=== PATIENT | female | born 1980 | race Caucasian/White ===

== ENCOUNTER 2023-10-18 23:05 | Inpatient (IN) | payer BC, SELFPAY ==
[2023-10-18] VITALS (8 sets, daily range): BP systolic 113–138; BP diastolic 69–84
[2023-10-18 17:48] LABS: COVID-19 Antigen Negative (Negative)
[2023-10-18 18:12] LABS: % Basophils 0.6 % (0-2); % Eosinophils 1.5 % (0-6); % Immature Granulocytes 0.2 % (0-0.5); % Lymphocytes 24.3 % (20.5-51.1); % Monocytes 7.3 % (1.7-9.3); % Neutrophils 66.1 % (42.2-75.2); Absolute Basophils 0.1 10^3/uL (0-0.2); Absolute Eosinophils 0.1 10^3/uL (0-0.7); Absolute Monocytes 0.6 10^3/uL (0.1-0.6); Absolute Neutrophils 5.4 10^3/uL (1.4-6.5); Hematocrit 36.9 % (37.0-47.0); Hemoglobin 12.9 g/dL (12.0-16.0); Mean Corpuscular Hgb 31.9 pg (27.0-31.0); Mean Corpuscular Volume 91.1 fL (81.0-99.0); Mean Platelet Volume 9.7 fL (7.4-10.4); Nucleated Red Blood Cells % 0 %; Platelet Count 266 10^3/uL (130-400); Red Blood Cell Count 4.05 10^6/uL (4.20-5.40); White Blood Cell Count 8.1 10^3/uL (4.8-10.8)
--- NOTE | 2023-10-18 18:12 | ED.GENMED ---
History of Present Illness
General
Chief Complaint: Chest Problem
Source: patient
Exam Limitations: none
Time Seen by Provider: 10/18/23 17:37
Nursing documentation reviewed up to this point in time: agreed with
Travel History
Have you had any contact with someone who has COVID-19?: No
Do you have any symptoms of coronavirus? Fever > 100 degrees, chills, cough, shortness of breath, sore throat, loss of taste or smell, muscle aches, or headache?: Yes
Symptoms:: cough
History of Present Illness
History of Present Illness:
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
no chronic problems
on patch for menopausal sxs
here with b/l lower chest/upper abd pain and chest tightness, pleuritic pain x 4 days
pt says she had a GI issue the night beofre with cramping and diarrhea. she had a few episodes of nonbloody diarrhea
the following day she noticed while on the elipitcal she was having some inspiratory CP and chest tightness
'i was aware of my breath'
pt has had continuing of that discomfort the past few days and says she got a worsening pain on her L lower chest that seemed to move across to her R side today as well
she has also had a dry cough
no fever, chills, heompatoysis, no h/o recen ttravel
no legs welling
no h/o dvt/pe
nonsmoker
Past History
Past History
ED Past Medical History: None
ED Past Surgical History: None
Patient has exhibited threatening behavior?: No
Social History
Tobacco: Non-smoker
Personal:
Living: with family
Review of Systems
Review of Systems
Allergies reviewed?: Yes
All Other Systems: Not applicable
Phy Exam
Physical Exam
Physical Exam:
GENERAL: Alert , in no apparent distress
EYE: pupils equal and reactive
NECK: Supple
ENT: o/p clr, mmm.
CARDIAC: Regular rate and rhythm .no edema
LUNGS: Clear breath sounds bilaterally, no acute respiratory distress, no wheezes/rales/rhonchi
ABDOMEN: Soft, without focal tenderness, no r/g, no cvat, normal bowel sounds
NEUROLOGICAL: Alert and oriented, no focal neuro deficits
SKIN: Warm and dry, skin intact.
MUSCULOSKELETAL: No edema, well perfused. neg fredrick's sign
PSYCH: Normal and appropriate interaction.
Course
Orders/Labs/Results
Orders:
Orders
10/18/23 17:07
EKG [Electrocardiogram (*1)] Urgent
Reason for Study: Chest Pain
10/18/23 17:08
EKG- Treatment ONCE
10/18/23 17:20
COVID-19 Antigen Urgent
Source: Nasal Swab
Influenza A+B Rapid Molecular Urgent
HANNAH Source: Nasal Swab
Specimen Description:
10/18/23 17:56
Ketorolac [Toradol] 15 mg IV NOW STA
10/18/23 17:57
Electrocardiogram (*1) Urgent
Reason for Study: Abdominal Pain
EKG- Treatment ONCE
Test Result ONCE
10/18/23 18:02
Complete Blood Count/With Diff Urgent
Comprehensive Metabolic Panel Urgent
D-Dimer Urgent
HCG, Serum Qualitative Screen Urgent
Lipase Urgent
10/18/23 19:13
CT Chest Pe Study Urgent
Comment:
Reason For Exam: b/l pleuritic pain
10/18/23 20:57
Heparin 4,900 units IV NOW STA
Nursing to Place Non Medication Order As Directed
Physician Order: PTT 6 hours after initial start of Heparin infusion
10/18/23 21:00
Heparin [id number] Units/250 ml 25,000 units in 250 ml IV PER PROTOCOL
Weight to be used for heparin protocol in kilograms (kg):: 61
Protocol:: DVT/PE
PTT Goal Range to be used:: PTT 73 to 111 seconds
Order type:: Initial
INITIAL Infusion Dose (UNITS/KG/hr) & then follow protocol:: 18 units/kg/hr
Infusion Dose in UNITS/hr & then follow protocol (UNITS/hr):: 1,100
INFUSION RATE in mL/hr & then follow protocol (mL/hr):: 11
For DVT/PE algorithm, re-bolus for low PTT?: Yes
PTT less than or equal to 64 seconds:: Re-bolus 80 units/kg (max 10,000units). Increase by 200 units/hr
(+ 2mL/hr)
PTT 64.1 to 72.9 seconds:: Re-bolus 40 units/kg (max 5,000 units). Increase by 100 units/hr
(+ 1mL/hr)
PTT 73 to 111 seconds:: Target Range. No change in rate.
PTT 111.1 to 130.9 seconds:: Decrease rate by 100 units/hr (- 1 mL/hr)
PTT 131 to 199.9 seconds:: HOLD for 1 hr. Then decrease by 200 units/hr (- 2mL/hr)
PTT greater than or equal to 200 seconds:: HOLD for 2 hrs & Notify Provider. Then decrease by 200 units/hr
(- 2mL/hr)
Lab follow-up:: Each change, PTT q6h until 2 consecutive are therapeutic. Then
PTT daily.
10/18/23 21:17
PTT Urgent
Comment: Obtain baseline before beginning heparin infusion if not already collected
10/18/23 21:48
Troponin I Urgent
10/18/23 22:00
Flush (0.9% Sodium Chloride) [Flush (Nss)] See Dose Instructions IV PER PROTOCOL
10/18/23 22:06
Heparin 4,900 units IV PRN PRN
10/18/23 22:07
Heparin 2,400 units IV PRN PRN
10/18/23 22:12
Urinalysis Reflex To Culture Urgent
Date Specimen was Collected: 10/18/23
Time Specimen was Collected: 22:11
10/18/23 22:41
Admit/Transfer Patient As Directed
Co-Sign Provider:
Level of Care: Inpatient admission
Assign to:: Telemetry
Physician / Group: Fatuma Adam
Diagnosis: Acute bilateral LL PE
Reason for Telemetry: Chest Pain syndromes
Date to Stop Telemetry: 10/20/23
Time to Stop Telemetry: 11:00
Reason for Hospitalization: Acute bilateral LL PE - IV Heparin
Expected length of stay greater than two midnights?: Yes
ELOS- Estimated Length of Stay in days: 2
I certify the patient meets the requirements for IP care: Yes
10/18/23 22:42
Code Status As Directed
Resuscitation Status: Full Code
10/20/23 11:00
DC Protocol for Telemetry ONCE
Abnormal Lab Results
10/18/23
18:02
RBC 4.05 L 10^6/uL
(4.20-5.40)
Hct 36.9 L %
(37.0-47.0)
MCH 31.9 H pg
(27.0-31.0)
D-Dimer 1.48 H ug/mlFEU
(0.00-0.50)
Sodium 133 L mmol/L
(135-145)
Creatinine 0.5 L mg/dL
(0.6-1.0)
10/18/23 18:02
10/18/23 18:02
Vital Signs
Initial and Last Documented VS:
Initial Vital Signs
Temp Pulse Resp BP Pulse Ox
98.3 F 74 18 135/79 99
10/18/23 17:02 10/18/23 17:02 10/18/23 17:02 10/18/23 17:02 10/18/23 17:02
Last Documented Vital Signs
Temp Pulse Resp BP Pulse Ox
98.3 F 76 16 119/84 97
10/18/23 17:02 10/18/23 22:45 10/18/23 22:45 10/18/23 22:07 10/18/23 22:45
MDM/Problems Addressed
Differential Diagnosis Includes:
PE, msk pain, cholelithiasis, costochonrdritis
MDM/Problems Addressed:
43 y/o F
healthy marathon runner
4 days pleuritic lower chest pain
no cp at rest
recently started patch for horomonal changes
no hypoxia, tachypnea, tachycardia
sent by for eval for PE
lungs clear
well apeparing
pulse ox normal
ekg nonischemci
slight t wave inv v2
d dimer elevated
CT shows B/L lower lobe PE
d/w ed attending, given biateral nature, opted to admit.
d/w home health rn regarding dispo vs. admit, who was not sure she could adequately classify pt as low risk without seeing her so thus pt was admitted
trop pending
heparin drip
*Critical Care Note
Total Time (30-74mins, 75-104mins- exclusive of procedures): Not Applicable
ED Attending Note
-
Portions of this chart may have been created with voice recognition software.� Occasional wrong word or��sound alike� substitutions may have occurred due to the inherent limitations of voice recognition software.
Discharge Plan
Departure
Patient Disposition: Admit
Date of Disposition: 10/18/23
Time of Disposition: 20:57
Admit to: Telemetry
Presentation/result/management discussed w/ accepting MD/DO: Hospitalist
Patient with high blood pressure during this ER visit?: No
Condition: Fair
Covid-19: Not Applicable
Discharge Problem:
Bilateral pulmonary embolism
Interventions
Interventions:
*Risk Screen - Suicide Last Done: 10/18/23 17:06
*General Assessment Last Done: 10/18/23 17:06
*Neglect/Abuse Screening Last Done: 10/18/23 17:06
*ED COVID-19 Vaccine History Last Done: 10/18/23 17:06
ED- Cardiac Assessment Last Done: 10/18/23 17:49
ED- Pulmonary Assessment Last Done: 10/18/23 17:49
[2023-10-18 18:22] LABS: HCG, Serum Qualitative Screen Negative
[2023-10-18 18:25] LABS: D-Dimer 1.48 ug/mlFEU (0.00-0.50)
[2023-10-18] MEDS: TORADOL 15 MG IV (18:26)
[2023-10-18 19:11] LABS: ALT (SGPT) 12 U/L (0-35); AST (SGOT) 20 U/L (14-36); Albumin 3.9 g/dl (3.5-5.0); Alkaline Phosphatase 75 U/L (38-126); Blood Urea Nitrogen 9 mg/dl (7-17); Calcium 8.9 mg/dl (8.4-10.2); Carbon Dioxide 25 mmol/L (22-30); Chloride 103 mmol/L (98-107); Glucose 97 mg/dl (70-99); Lipase 141 U/L (23-300); Potassium 3.8 mmol/L (3.5-5.1); Sodium 133 mmol/L (135-145); Total Bilirubin 0.4 mg/dl (0.2-1.3); Total Protein 6.8 g/dl (6.3-8.2); eGFR > 60.00
[2023-10-18 21:34] LABS: APTT 23.7 Sec (23.4-35.0)
[2023-10-18 22:17] LABS: Troponin I < 0.012 ng/ml
[2023-10-18 22:19] LABS: Urine Albumin Trace (Neg - Trace); Urine Bilirubin Negative (Negative); Urine Character Clear (Clear); Urine Color Yellow; Urine Glucose Negative (Negative); Urine Ketone Negative (Negative); Urine Leukocyte Negative (Negative); Urine Nitrite Negative (Negative); Urine Occult Blood Negative (Negative); Urine Urobilinogen Negative (Neg - 1+)
--- NOTE | 2023-10-18 22:24 | HPS.HSE ---
Family Physician
-
Family Physician: Shayla Loyd MD
Chief Complaint
-
chest pain
History of Present Illness
43 y/o F, no PMH, generally healthy (runs marathons) presents to ER for bilateral lower chest and abdominal pain. She reports chest pain is pleuritic, moderate and has been present x 4 days. Prior to these symptoms, she had vague abd
cramping/diarrhea (nonbloody). During exercise, she noted the inspiratory pain stating 'she was more aware of her breath'. Initially her pain was L sided then she felt it on the R side. She reports dry cough without fever/chills. No bleeding. No
recent travel or procedures. No prior clotting. She reports recently starting Xulane patch for post-menopausal symptoms.
Medical History
Past Medical History
Past Medical History: Reports None
Past Surgical History: Reports None
Social History
Tobacco: Non-smoker
Alcohol: None
Drug: None
Personal:
Employment: Employed
Family History
Family History: Not pertinent
Allergies / Home Medications
Allergies reflects when Allergies were last updated in [employer].
Home Medications with original date entered in [employer]
Allergy/Medication List:
Allergies
Allergy/AdvReac Type Severity Reaction Status Date / Time
HARRY AdvReac Intermediate Hives Uncoded 10/18/23 17:02
Home Medications
Probiotic 1 cap PO DAILY@1300 PRN supplement 10/18/23
Review of Systems
-
A 12 point ROS was completed and negative except as noted: Yes
Physical Exam
Vital Signs
Vital Signs
Temp Pulse Resp BP Pulse Ox
98.3 F 65 22 138/83 96
10/18/23 17:02 10/18/23 21:15 10/18/23 21:15 10/18/23 21:00 10/18/23 21:15
Physical Exam
General: No Apparent Distress
HEENT: NormoCephalic and Anicteric
Respiratory: No Wheezes or Rales
Cardiac: S1/S2 and Regular Rhythm
GI: Soft and Non Tender
Neuro: AO x 3
Psych: Calm
Laboratory Results
-
10/18/23 18:02
10/18/23 18:02
Laboratory Results
APTT 23.7 Sec (23.4-35.0) 10/18/23 21:17
Total Bilirubin 0.4 mg/dl (0.2-1.3) 10/18/23 18:02
AST 20 U/L (14-36) 10/18/23 18:02
ALT 12 U/L (0-35) 10/18/23 18:02
Alkaline Phosphatase 75 U/L (38-126) 10/18/23 18:02
Troponin I < 0.012 ng/ml 10/18/23 21:48
Lipase 141 U/L (23-300) 10/18/23 18:02
Data Reviewed
-
Lab Data: Labs Reviewed by me
Impression/Plan
-
Assessment:
Acute bilateral LL PE
- CT: Bilateral lower lobe pulmonary embolism. no RHS.
- likely provoked in setting of Xulane patch
- pulm consulted by ER; recommended admit
- start IV Heparin; monitor PTTs
- check Venous dopplers
- pain control: Prn Tramadol, prn low dose Toradol
Post-menopausal symptoms
- stop Xulane patch; OP Yard Motor Operator follow up
Code: Full
[2023-10-18] MEDS: HEPARIN 25000 UNITS/250 ML IV (22:37)
[2023-10-18] MEDS: HEPARIN 4900 UNITS IV (22:39)
[2023-10-19] VITALS (8 sets, daily range): BP systolic 106–146; BP diastolic 64–78; BMI 23.5
[2023-10-19] MEDS: ULTRAM 50 MG PO (02:18)
--- NOTE | 2023-10-19 02:31 | PTCARENOTE ---
Received pt from ED via stretcher, ambulated to bed without assist. AAOx3, VSS, complains of pain in lower ribcage radiating to pain. Plan of care reviewed. Oriented to floor, call rivas within reach.
[2023-10-19 05:10] LABS: Hematocrit 35.8 % (37.0-47.0); Hemoglobin 12.4 g/dL (12.0-16.0); Mean Corp Hgb Conc. 34.6 g/dL (33.0-37.0); Mean Corpuscular Hgb 31.3 pg (27.0-31.0); Mean Corpuscular Volume 90.4 fL (81.0-99.0); Mean Platelet Volume 9.8 fL (7.4-10.4); Platelet Count 253 10^3/uL (130-400); Red Blood Cell Count 3.96 10^6/uL (4.20-5.40); Red Cell Dist. Width 11.9 % (11.5-14.5); White Blood Cell Count 8.7 10^3/uL (4.8-10.8)
[2023-10-19 05:19] LABS: APTT 69.8 Sec (23.4-35.0)
[2023-10-19] MEDS: HEPARIN 2400 UNITS IV (06:08)
[2023-10-19 06:27] LABS: Blood Urea Nitrogen 10 mg/dl (7-17); Calcium 8.3 mg/dl (8.4-10.2); Carbon Dioxide 23 mmol/L (22-30); Chloride 107 mmol/L (98-107); Estimated Creatinine Clearance 97 ml/min; Glucose 88 mg/dl (70-99); Potassium 3.9 mmol/L (3.5-5.1); Sodium 135 mmol/L (135-145); eGFR > 60.00
--- NOTE | 2023-10-19 08:31 | CON.PUL ---
Consultation
Consultation Request
Date/Time Consultation Requested: 10/19/2023-8 AM
Date/Time Consultation Performed: 10/19/2023-8:30 AM
Requesting Provider: Hospitalist
Performing Provider: Dr. Gresham
Reason for Consultation: Pleurisy and pulmonary embolism
Medical History
-
Chief Complaint: Pleurisy
History of Present Illness:
43-year-old female without significant medical issues and very active including running marathons presented with bilateral lower chest neuritic pain as well as some abdominal pain noted to have bilateral pulmonary emboli-pulmonary consulted for
unprovoked pulmonary embolism 10/19/2023. She noticed some discomfort starting on Tuesday and not feeling right. She took a nap. She continued to run. The day before she came in she ran 6 miles. She cannot run with the same vigor or speed as she
done before. She felt like she had a difficult time taking a deep breath. She had dyspnea on exertion but no other anterior chest pain and offers no complaints of abdominal pain, nausea, vomiting, anorexia, weight loss or lower extremity edema.
Past Medical History
Past Medical History: None (Specifically no history of hypertension, diabetes, CAD, pulmonary, renal, gastrointestinal or neurologic disease)
Social History
Tobacco: Non-smoker
Alcohol: None
Drug: None
Personal:
Living: With Family
Occupational Exposures: No known asbestos exposure
Environmental Exposures: No known tuberculosis exposure n
Family History
Family History: Other (Father-unprovoked lower extremity DVT on chronic anticoagulation)
Allergies / Home Medications
Allergies
Allergy/AdvReac Type Severity Reaction Status Date / Time
HARRY AdvReac Intermediate Hives Uncoded 10/18/23 17:02
Home Medications
Medication Instructions Recorded Confirmed Last Taken Type
Probiotic 1 cap PO DAILY@1300 PRN supplement 10/18/23 10/18/23 Unknown History
Review of Systems
-
Unable to Obtain full review of systems at this time due to: Other (Per HPI)
Vitals / Labs / Diagnostic Testing
Vital Signs
Temp Pulse Resp BP Pulse Ox
98.5 F 68 16 146/70 98
10/19/23 02:13 10/19/23 02:13 10/19/23 02:13 10/19/23 02:13 10/19/23 02:13
Lab Data
10/19/23 04:57
10/19/23 04:57
Laboratory Results
10/18/23 10/19/23
21:17 04:57
APTT 23.7 69.8 H
Microbiology
10/18/23 17:20 Nasal Swab Influenza Types A & B (NICOLE) - Final
Negative for Influenza A & B, NAAT
Negative results must be combined with clinical observations
and patient history.
Nucleic Acid Amplification test (NAAT)performed on the
[employer] platform.
Diagnostic Testing:
Physical Exam
-
Exam:
Well-nourished and well-developed in no apparent distress
HEENT-atraumatic, normocephalic
Neck-supple, no JVD, no bruit
Heart-regular rate and rhythm-no murmurs, rubs or gallops, no increased P2 or RV heave
Chest-clear to auscultation, no wheezes, crackles
Back-no tenderness
Abdomen-soft, nontender, nondistended, no hepatosplenomegaly
Extremities-no cyanosis, clubbing, edema and good peripheral pulses
Integument-intact, no rashes, lesions or ecchymosis
Neurology-alert and oriented, nonfocal motor and sensory exam
Assessment
-
43-year-old female without significant medical issues and very active including running marathons presented with bilateral lower chest neuritic pain as well as some abdominal pain noted to have bilateral pulmonary emboli-pulmonary consulted for
unprovoked pulmonary embolism 10/19/2023.
Assessment
Bilateral pulmonary emboli-unprovoked
Unprovoked with no significant right ventricular strain
D-dimer positive, troponin not obtained, proBNP
PESI-44, class I, low risk
Pleurisy
Postmenopausal symptoms on Xulane patch
Conditions present prior to admission:
None
Family history of unprovoked DVT-father on chronic anticoagulation
Plan
Pulmonary embolism and pleurisy
Respiratory symptoms consistent with unprovoked
Supplemental oxygen as needed
Aspiration precautions
Incentive spirometry
CT chest personally reviewed-bilateral lower lobe pulmonary emboli no findings to suggest right heart strain
Check echocardiogram-pending
Check lower extremity ultrasound-pending
Recommend eventual hypercoagulable workup-family history as well
Stop Xulane patch
Full PESI and sPESI summarized above
Heparin drip or Lovenox 1 mg/kg every 12 hours
Thrombolytics not indicated
Convert to oral anticoagulant for minimum of 3-6 months with subsequent pulmonary/hematologic evaluation
Bedrest �24 hours
DVT prophylaxis-on full anticoagulation
Early nutrition
Early mobilization
Outpatient pulmonary [id number], follow-up CT chest, etc.
Outpatient appropriate malignancy screening including colonoscopy
Diagnostic data:
CT chest 10/18/2023-bilateral lower lobe lobe pulmonary emboli no findings to suggest right heart strain
Data Reviewed
-
EKG: Report reviewed by me
Radiology: Report reviewed by me
CT Scan: Image personally visualized and interpreted and Report reviewed by me
Medical Tests (Nuc Med, Echo etc): Report reviewed by me
Labs: Labs reviewed by me
Old Records: Reviewed
Total Time Spent with Patient (in minutes): 55
[2023-10-19] MEDS: TYLENOL 1000 MG PO ×3 (08:40→21:13)
--- NOTE | 2023-10-19 10:37 | W.PN.HOSP.TC ---
Today's Communication/Plan
-
.
Assessment / Plan
Assessment / Plan
Physical Exam
General:�Comfortable and Conversant
HEENT:�Anicteric and Moist mucous membranes
Respiratory:�Clear and Non Labored Respirations
Cardiac:�S1/S2 and Regular Rhythm
GI:�Soft and Non Tender
Musculoskeletal:�No Clubbing, No Cyanosis and Edema, Right Lower Extremity
Skin:�Warm, Dry and Other (Moderate erythema LLE extending from ankle to just below the Musculoskeletal: Erythema extends outside previously drawn ferreira)
Neuro:�Awake, Alert, Oriented and Non-focal/grossly intact, followed commands.Psych: calm, no agitation.
Acute bilateral LL PE
- CT: Bilateral lower lobe pulmonary embolism.
- likely provoked in setting of Xulane patch
- c/w heparin gtt for 48 hours before switching to oral AC, will have discussion regarding potential side effects and benefits of oral anticoagulation to decide which type. Likely will need 4-6 months of AC
- s monitor PTT
- check Venous Doppler
-Order echocardiogram. Negative troponin.
-Stopped control medication
Eventual home O2 evaluation-
# Pleuritic chest pain
Will give Tylenol [id number]
- pain control: Prn Tramadol, prn low dose Toradol
#Post-menopausal symptoms
Patient was concerned about perimenopausal symptoms including hot flashes/central weight gain
- stop Xulane patch; OP Education Professional follow up
# Hyponatremia, resolved.
Code: Full
Total time spent to see the patient, examine the patient on the floor, review data and lab results, discuss treatment plan with patient, nursing staff around 55 minutes
Anticipated Discharge: 24 - 48 hours
Subjective/Interval History
-
Date of Service: October 19, 2023
She has pleuritic chest pain mostly upon moving and deep breath
Objective Data
-
Labs:
Laboratory Results
10/19/23 10/19/23
04:57 12:15
WBC 8.7
Hgb 12.4
Hct 35.8 L
Plt Count 253
APTT 69.8 H Pending
Sodium 135
Potassium 3.9
Chloride 107
Carbon Dioxide 23
BUN 10
Creatinine 0.5 L
Glucose 88
Calcium 8.3 L
Vital Signs:
Vital Signs
Temp Pulse Resp BP Pulse Ox
98.6 F 72 18 116/73 99
10/19/23 07:25 10/19/23 07:25 10/19/23 07:25 10/19/23 07:25 10/19/23 07:25
I&O
10/18/23 10/19/23 10/20/23
06:59 06:59 06:59
Intake Total 120 / 120
Balance 120 / 120
[2023-10-19 12:55] LABS: APTT 84.2 Sec (23.4-35.0)
[2023-10-19] MEDS: HEPARIN 25000 UNITS/250 ML IV (17:33)
[2023-10-19 19:50] LABS: APTT 78.4 Sec (23.4-35.0)
[2023-10-20 03:55] VITALS: BP 102/60
[2023-10-20 06:26] LABS: Hemoglobin 12.8 g/dL (12.0-16.0); Mean Corp Hgb Conc. 34.6 g/dL (33.0-37.0); Mean Corpuscular Hgb 31.3 pg (27.0-31.0); Mean Corpuscular Volume 90.5 fL (81.0-99.0); Mean Platelet Volume 10.2 fL (7.4-10.4); Platelet Count 283 10^3/uL (130-400); Red Blood Cell Count 4.09 10^6/uL (4.20-5.40); Red Cell Dist. Width 12.3 % (11.5-14.5); White Blood Cell Count 8.7 10^3/uL (4.8-10.8)
[2023-10-20 06:28] LABS: APTT 72.2 Sec (23.4-35.0)
[2023-10-20 07:00] VITALS: BP 120/68
[2023-10-20 07:04] LABS: Blood Urea Nitrogen 10 mg/dl (7-17); Calcium 8.9 mg/dl (8.4-10.2); Carbon Dioxide 25 mmol/L (22-30); Chloride 104 mmol/L (98-107); Estimated Creatinine Clearance 97 ml/min; Glucose 93 mg/dl (70-99); Potassium 4.4 mmol/L (3.5-5.1); Sodium 137 mmol/L (135-145); eGFR > 60.00
[2023-10-20] MEDS: HEPARIN 2400 UNITS IV (07:25)
[2023-10-20] MEDS: TYLENOL 1000 MG PO (07:28)
--- NOTE | 2023-10-20 09:52 | W.PN.PUL.V3 ---
Today's Communication / Plan
-
Increase activity.
Convert to oral anticoagulant-treated for 3-6 months.
Outpatient pulmonary [id number] with primary team
Assessment
-
43-year-old female without significant medical issues and very active including running marathons presented with bilateral lower chest neuritic pain as well as some abdominal pain noted to have bilateral pulmonary emboli-pulmonary consulted for
unprovoked pulmonary embolism 10/19/2023.
Assessment
Bilateral pulmonary emboli-unprovoked
Unprovoked with no significant right ventricular strain
D-dimer positive, troponin not obtained, proBNP
PESI-44, class I, low risk
Pleurisy
Postmenopausal symptoms on Xulane patch
Conditions present prior to admission:
None
Family history of unprovoked DVT-father on chronic anticoagulation
Plan
Respiratory symptoms consistent with unprovoked pulmonary embolism with pleurisy-caveat patient on Xulane patch
Supplemental oxygen as needed
Aspiration precautions
Incentive spirometry
CT chest personally reviewed-bilateral lower lobe pulmonary emboli no findings to suggest right heart strain
Echocardiogram with preserved function and no RV strain.
Lower extremity ultrasound without DVT
Recommend eventual hypercoagulable workup-family history as well
Stop Xulane patch
Full PESI and sPESI summarized above
Convert to oral anticoagulant for minimum of 3-6 months with subsequent pulmonary/hematologic evaluation
Begin to ambulate
DVT prophylaxis-on full anticoagulation.
Nutrition
Outpatient pulmonary [id number], follow-up CT chest, etc.
Outpatient appropriate malignancy screening including colonoscopy
Diagnostic data:
CT chest 10/18/2023-bilateral lower lobe lobe pulmonary emboli no findings to suggest right heart strain
Subjective Data
-
Date of Service:
Date of Service: October 20, 2023
Chief Complaint: Pulmonary Follow Up and Dyspnea Follow Up
Subjective:
Pleurisy ALL gone, no chest pain, shortness of breath at rest, abdominal pain
Review of Systems
General: Other ( per HPI)
Objective Data
Data Reviewed
Vital Signs / I&O:
Vital Signs
Temp Pulse Resp BP Pulse Ox
98.5 F 69 18 120/68 98
10/20/23 07:00 10/20/23 07:00 10/20/23 07:00 10/20/23 07:00 10/20/23 07:00
Intake and Output
10/19/23 10/20/23 10/21/23
06:59 06:59 06:59
Intake Total 120 / 120 1080 / 1080
Balance 120 / 120 1080 / 1080
SaO2: 98
Physical Exam
General: Respiratory Distress (n) and Comfortable
HEENT: Normocephalic, Anicteric and Moist Mucous Membranes
Cardiovascular: Regular Rhythm
Respiratory: Wheeze (n), Crackles (n), Rhonchi (n), Non-Labored Respirations, Accessory Resp Muscle Use (n) and Stridor (n)
GI: Soft, Non Distended and Non Tender
Neurology: Awake, Alert and No Motor Deficits
Skin: Warm, Good Color, Cyanosis (n), Jaundice (n) and Rash (n)
Labs/Micro/Reports
Lab Data
10/20/23 05:52
10/20/23 05:52
Laboratory Results
10/19/23 10/19/23 10/20/23
12:34 19:27 05:52
APTT 84.2 H 78.4 H 72.2 H
Microbiology
10/18/23 17:20 Nasal Swab Influenza Types A & B (NICOLE) - Final
Negative for Influenza A & B, NAAT
Negative results must be combined with clinical observations
and patient history.
Nucleic Acid Amplification test (NAAT)performed on the
[employer] platform.
--- NOTE | 2023-10-20 10:45 | W.DCSUMMARY ---
Discharge Summary
Discharge Data
Date of Admission: 10/18/23
Date of Discharge: 10/20/23
-
Pending Results: No
Hospital Course
43- years old female without significant medical issues and very active including training to run a marathon presented with bilateral lower chest neuritic pain as well as some abdominal pain. She did not have cough, fever. Negative troponin. Chest
scan with contrast showed bilateral pulmonary emboli. She did not have hypoxia. She was evaluated by pulmonary doctor. She had dyspnea on exertion but no other anterior chest pain. She was started on heparin drip for 48 hours. Echocardiogram showed
normal biventricular function and size with no wall motion abnormalities. Doppler ultrasound of both legs did not show blood clots. Patient was recently started on Xulane patch for postmenopausal symptoms. The blood clot thought to be provoked.
Recommendation to continue oral anticoagulation therapy for 3 to 6 months. Patient was counseled regarding potential benefits and side effects of each type of oral anticoagulation. She chose Eliquis because her father was on it and she was
familiar with the medicine. She verbalized understanding to side effects and to instructions regarding safety with the use of systemic anticoagulation therapy. Her pleuritic chest pain was controlled with Tylenol. She tolerated diet. She was
advised to follow-up with her primary care doctor upon discharge. She was also advised to follow-up with pulmonary and hematology as an outpatient. Patient remained hemodynamically stable and was discharged in a stable condition.
Physical Exam
General:�Comfortable and Conversant
HEENT:�Anicteric and Moist mucous membranes
Respiratory:�Clear and Non Labored Respirations
Cardiac:�S1/S2 and Regular Rhythm
GI:�Soft and Non Tender
Musculoskeletal:�No Clubbing, No Cyanosis and Edema, Right Lower Extremity
Skin:�Warm, Dry, no edema or erythema.
Neuro:�Awake, Alert, Oriented and Non-focal/grossly intact, followed commands.
Psych: calm, no agitation.
Total discharge time spent to see the patient, examine the patient on the floor, review data and lab results, discuss treatment plan with patient, pulmonary doctor, nursing staff around 65 minutes
Discharge Plan
-
Patient Disposition: Home (Routine Discharge)
Discharge Diagnosis/Procedures: Acute bilateral pulmonary emboli, provoked. Stop control medicine.
You are seen by pulmonary doctor. You did not have hypoxia. Your cardiac testing came back within normal range. You will need to follow-up with pulmonary and hematology as an outpatient.
Eliquis is a blood thinner, potential side effect include spontaneous bleeding. Avoid falls/trauma.
Condition: Good
Diet: As tolerated
Referrals:
Leigh Ann North MD [Active] - in one month
Shayla Loyd MD [Family Provider] -
Wade Gresham MD [Active] - (or DIRECTOR RISK-CT and PFTs in 3 months)
Prescriptions:
New
acetaminophen [Tylenol Extra Strength] 500 mg Tablet
1,000 mg PO TIDPRN PRN (Reason: fever or pain) Qty: 10 0RF
Eliquis 5 mg tablet
10 mg PO BID Qty: 28 0RF
Rx Instructions:
10 mg twice a day for 7 days then 5 mg BID.
Eliquis 5 mg tablet
5 mg PO BID Qty: 60 0RF
Rx Instructions:
10 mg twice a day for 7 days then 5 mg BID.
Continued
Probiotic
1 cap PO DAILY@1300 PRN (Reason: supplement)
Discharge Orders:
Discharge Patient (As Directed); Ordered 10/20/23
Ordered By: Lilia Benson
[2023-10-20 11:00] VITALS: BP 112/71
[2023-10-20] MEDS: ELIQUIS 10 MG PO (12:03)
--- NOTE | 2023-10-20 15:05 | CM ---
CM following re: d/c planning
Chart reviewed
CM met with patient at bedside; IA completed
Pt states she, her spouse and their 3 children reside in a [address] with 2STE
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
Pt has no past hx of VN/SNF and the only DME owned is a pair of crutches
Pt has confirmed prescription coverage and rx's are filled at [facility] on [address] [place]
Pt PCP-[facility] and the patient sees Sara Loyd
Pt has been cleared medically for d/c and has no needs
Pt spouse to transport at time of d/c
PLAN; d/c home no needs
== END 2023-10-20 12:58 | disposition home or self-care (01) | DRG 176 ==
LOC: 4 EAST ACU 23:05
PROVIDERS: Physician Assistant; ADMITTING PHYSICIAN Internal Medicine; ATTENDING PHYSICIAN Internal Medicine; CONSULT PHYSICIAN Internal Medicine; EMERGENCY PHYSICIAN Emergency Medicine; FAMILY PHYSICIAN Hospitalist
DX: I26.99 Other pulmonary embolism without acute cor pulmonale (principal); E87.1 Hypo-osmolality and hyponatremia; R07.81 Pleurodynia; N95.1 Menopausal and female climacteric states; Z79.01 Long term (current) use of anticoagulants
CPT/HCPCS: 71275; 80048; 80053; 81003; 83690; 84484; 84703; 85025; 85027; 85379; 85730; 87502; 87811; 93005; 93306; 93970; 96365; 96366; 96375; 99285; Q9967